=== PATIENT | female | born 1985 | race Caucasian/White ===

== ENCOUNTER → 2018-07-10 | Emergency (ER) | payer OTHER ==
[~2018-07-10] VITALS: Ht 165.1 cm; Wt 83.5 kg
[~2018-07-10] MED LIST: PNV-FERROUS FU1 EACH PO
== END | disposition home or self-care (01) ==
LOC: ER 17:31
DX: O26.892 Other specified pregnancy related conditions, second trimester (principal); J06.9 Acute upper respiratory infection, unspecified; Z34.02 Encounter for supervision of normal first pregnancy, second trimester

== ENCOUNTER 2018-11-04 07:14 | Inpatient (IN) | payer OTHER ==
[~2018-11-04] VITALS: Ht 165.1 cm; Wt 87.5 kg
== END 2018-11-07 13:40 | disposition home or self-care (01) | DRG 806 ==
LOC: OB/GYN 07:14 → LDR 07:14 → OB/GYN 19:04
PROVIDERS: ADMIT Specialist
PROC: 10E0XZZ Delivery of Products of Conception, External Approach (ICD-10-PCS; principal; 2018-11-04)
PROC: 0KQM0ZZ Repair Perineum Muscle, Open Approach (ICD-10-PCS; 2018-11-04)
PROC: 3E0P7VZ Introduction of Hormone into Female Reproductive, Via Natural or Artificial Opening (ICD-10-PCS; 2018-11-04)
PROC: 3E033VJ Introduction of Other Hormone into Peripheral Vein, Percutaneous Approach (ICD-10-PCS; 2018-11-04)
PROC: 4A1HXCZ Monitoring of Products of Conception, Cardiac Rate, External Approach (ICD-10-PCS; 2018-11-04)
DX: O70.1 Second degree perineal laceration during delivery (principal); O41.03X0 Oligohydramnios, third trimester, not applicable or unspecified; Z37.0 Single live birth; Z3A.39 39 weeks gestation of pregnancy; O24.420 Gestational diabetes mellitus in childbirth, diet controlled